=== PATIENT | female | born 1995 | race Caucasian/White ===

== ENCOUNTER 2016-11-08 15:24 | Emergency (ER) | payer MEDICAID ==
[~2016-11-08] VITALS: Ht 162.6 cm; Wt 63.6 kg
[2016-11-08 15:29] VITALS: TEMP 98.2
[2016-11-08 16:32] LABS: BASO % 0.2 % (0.0-2.0); EOS % 0.2 % (0-4.0); GRAN # 4.7 (1.4-6.5); GRAN % 73.3 % (42.2-75.2); LYMPH # 1.2 (1.2-3.4); LYMPH % 18.7 % (20.0-51.0); MEAN CELL VOLUME 82 fl (80.0-100.0); MEAN CORPUSCULAR HGB CONC 33 g/dl (33.0-37.0); MEAN PLATELET VOLUME 12.2 fl (7.4-10.4); MONO # 0.5 (0.1-0.6); MONO % 7.3 % (1.7-9.3); PLATELET COUNT 185 K/mm3 (130-400); RED BLOOD COUNT 4.13 M/mm3 (4.10-5.30); REDCELL DISTRIBUTION WIDTH-CV 14.7 % (11.5-14.5); WHITE BLOOD COUNT 6.4 K/mm3 (4.8-10.8)
[2016-11-08 16:36] LABS: HEMATOCRIT 33.8 % (37.0-47.0); HEMOGLOBIN 11.1 g/dl (12.5-16.0); MEAN CORPUSCULAR HEMOGLOBIN 27 pg (27.0-31.0)
[2016-11-08 16:41] LABS: ADJUSTED CALCIUM 9.3 mg/dL (8.4-10.2); ALBUMIN 3.5 gm/dL (3.5-5.0); BILIRUBIN,TOTAL 0.6 mg/dL (0.0-1.0); CALCIUM 8.9 mg/dL (8.4-10.2); CREATININE, serum 0.54 mg/dL (0.52-1.25); POTASSIUM 3.3 mmol/L (3.4-5.0); TOTAL PROTEIN 6.8 gm/dL (6.4-8.2)
[2016-11-08 17:21] VITALS: BP 110/70; PULSE 88
[2016-11-08 18:01] LABS: INFLUENZA B NEGATIVE
== END 2016-11-08 17:23 | disposition home or self-care (01) ==
LOC: COL.ER 15:24
PROVIDERS: Emergency Medicine
DX: O98.512 Other viral diseases complicating pregnancy, second trimester (principal); B34.9 Viral infection, unspecified; O99.282 Endocrine, nutritional and metabolic diseases complicating pregnancy, second trimester; E87.6 Hypokalemia; O99.332 Smoking (tobacco) complicating pregnancy, second trimester; F17.210 Nicotine dependence, cigarettes, uncomplicated; Z3A.20 20 weeks gestation of pregnancy
CPT/HCPCS: J1200; J7030

== ENCOUNTER 2016-12-01 11:51 | Emergency (ER) | payer MEDICAID ==
[~2016-12-01] VITALS: Ht 162.6 cm; Wt 67.6 kg
[2016-12-01 12:00] VITALS: BP 120/65; TEMP 97.8
[2016-12-01 12:41] LABS: PH 8 (5-8); URINE APPEARANCE Cloudy; URINE BACTERIA Rare /hpf; URINE BILIRUBIN Negative (NEGATIVE); URINE BLOOD Negative (NEGATIVE); URINE COLOR Yellow; URINE GLUCOSE Negative (NEGATIVE); URINE KETONE Trace (NEGATIVE)
[2016-12-01 13:19] LABS: BASO % 0.2 % (0.0-2.0); EOS % 0.4 % (0-4.0); GRAN # 5.6 (1.4-6.5); GRAN % 65.9 % (42.2-75.2); LYMPH # 2.4 (1.2-3.4); LYMPH % 27.9 % (20.0-51.0); MEAN CELL VOLUME 83 fl (80.0-100.0); MEAN CORPUSCULAR HGB CONC 33 g/dl (33.0-37.0); MEAN PLATELET VOLUME 12.7 fl (7.4-10.4); MONO # 0.4 (0.1-0.6); MONO % 5.2 % (1.7-9.3); PLATELET COUNT 221 K/mm3 (130-400); RED BLOOD COUNT 4.43 M/mm3 (4.10-5.30); REDCELL DISTRIBUTION WIDTH-CV 14.8 % (11.5-14.5); WHITE BLOOD COUNT 8.4 K/mm3 (4.8-10.8)
[2016-12-01 13:20] LABS: HEMATOCRIT 36.6 % (37.0-47.0); HEMOGLOBIN 11.9 g/dl (12.5-16.0); MEAN CORPUSCULAR HEMOGLOBIN 27 pg (27.0-31.0)
[2016-12-01 13:31] LABS: ADJUSTED CALCIUM 9.5 mg/dL (8.4-10.2); ALBUMIN 3.8 gm/dL (3.5-5.0); BILIRUBIN,TOTAL 1.3 mg/dL (0.0-1.0); CALCIUM 9.3 mg/dL (8.4-10.2); CREATININE, serum 0.55 mg/dL (0.52-1.25); POTASSIUM 3.4 mmol/L (3.4-5.0); TOTAL PROTEIN 7.5 gm/dL (6.4-8.2)
[2016-12-01] MEDS ORDERED: ZITHROMAX Z PA250 MG PO (14:33)
[2016-12-01 14:54] VITALS: PULSE 77
== END 2016-12-01 14:54 | disposition home or self-care (01) ==
LOC: COL.ER 11:51
PROVIDERS: Nurse Practitioner
DX: O99.89 Other specified diseases and conditions complicating pregnancy, childbirth and the puerperium (principal); R10.84 Generalized abdominal pain; O99.332 Smoking (tobacco) complicating pregnancy, second trimester; F17.210 Nicotine dependence, cigarettes, uncomplicated; Z3A.20 20 weeks gestation of pregnancy; R05 Cough
CPT/HCPCS: J7030

== ENCOUNTER 2017-02-16 12:42 | Outpatient (CLI) | payer MEDICAID ==
[~2017-02-16] VITALS: Ht 162.6 cm; Wt 72.7 kg
[~2017-02-16 12:42] MED LIST: ZITHROMAX Z PA250 MG PO
[2017-02-16 13:00] VITALS: BP 118/69; PULSE 106; TEMP 97.7
[2017-02-16] MEDS ORDERED: PRENATAL1 TA7 PO (13:02)
[2017-02-16] MEDS ORDERED: IRON325 M2 PO (13:03)
[2017-02-16] MEDS ORDERED: LEXAPRO 10MG10 MG PO (13:03)
[2017-02-16 13:30] VITALS: BP 110/65; PULSE 85
[2017-02-16 14:00] VITALS: BP 117/74; PULSE 78
[2017-02-16 14:30] VITALS: BP 109/64; PULSE 80
[2017-02-16 15:00] VITALS: BP 90/53; PULSE 85
== END 2017-02-16 15:30 | disposition home or self-care (01) ==
LOC: LDRO 12:42
DX: O26.893 Other specified pregnancy related conditions, third trimester (principal); O99.333 Smoking (tobacco) complicating pregnancy, third trimester; F17.210 Nicotine dependence, cigarettes, uncomplicated; Z3A.32 32 weeks gestation of pregnancy; W19.XXXA Unspecified fall, initial encounter

== ENCOUNTER 2017-02-23 17:19 | Outpatient (CLI) | payer MEDICAID ==
[~2017-02-23] VITALS: Ht 162.6 cm; Wt 72.7 kg
[2017-02-23] VITALS (9 sets, daily range): BP systolic 110–145; BP diastolic 62–81; PULSE 87–125; TEMP 97.8–98.6
[~2017-02-23 17:19] MED LIST changes: +IRON325 M2 PO; +LEXAPRO 10MG10 MG PO; +PRENATAL1 TA7 PO
[2017-02-23 19:30] LABS: BASO % 0.3 % (0.0-2.0); EOS % 0.3 % (0-4.0); GRAN # 5.9 (1.4-6.5); GRAN % 62.8 % (42.2-75.2); LYMPH # 2.6 (1.2-3.4); LYMPH % 28.1 % (20.0-51.0); MEAN CELL VOLUME 79 fl (80.0-100.0); MEAN CORPUSCULAR HGB CONC 32 g/dl (33.0-37.0); MEAN PLATELET VOLUME 12.7 fl (7.4-10.4); MONO # 0.7 (0.1-0.6); MONO % 7.9 % (1.7-9.3); PLATELET COUNT 203 K/mm3 (130-400); RED BLOOD COUNT 4.09 M/mm3 (4.10-5.30); REDCELL DISTRIBUTION WIDTH-CV 13.9 % (11.5-14.5); WHITE BLOOD COUNT 9.4 K/mm3 (4.8-10.8)
[2017-02-23 19:31] LABS: HEMATOCRIT 32.1 % (37.0-47.0); HEMOGLOBIN 10.3 g/dl (12.5-16.0); MEAN CORPUSCULAR HEMOGLOBIN 25 pg (27.0-31.0)
[2017-02-23 19:43] LABS: AMPHETAMINE URINE NEGATIVE; BARBITURATES URINE POSITIVE; BENZODIAZEPINES URINE NEGATIVE; METHADONE URINE NEGATIVE; OPIATES URINE NEGATIVE; OXYCODONE URINE NEGATIVE; PHENCYCLIDINE URINE NEGATIVE; PROPOXYPHENE URINE NEGATIVE; THC CANNABINOIDS URINE POSITIVE
[2017-02-23 19:45] LABS: PH 7 (5-8); URINE APPEARANCE Clear; URINE BACTERIA None Seen /hpf; URINE BILIRUBIN Negative (NEGATIVE); URINE BLOOD 2+ (NEGATIVE); URINE COLOR Yellow; URINE GLUCOSE Negative (NEGATIVE); URINE KETONE Negative (NEGATIVE); URINE UROBILINOGEN Negative (NEGATIVE)
[2017-02-23] MEDS ORDERED: LEXAPRO 10MG10 MG PO (21:49)
[2017-02-23] MEDS ORDERED: CEPHALEXIN500 M1 PO (21:49)
== END 2017-02-23 22:10 | disposition home or self-care (01) ==
LOC: LDRO 17:19 → LDR 17:51 → LDRO 17:51
PROVIDERS: Obstetrics & Gynecology
DX: O47.03 False labor before 37 completed weeks of gestation, third trimester (principal); O34.33 Maternal care for cervical incompetence, third trimester; F17.210 Nicotine dependence, cigarettes, uncomplicated; Z3A.33 33 weeks gestation of pregnancy
CPT/HCPCS: J0702; J2540; J3105; J7120

== ENCOUNTER 2017-02-24 15:56 | Outpatient (CLI) | payer MEDICAID ==
[~2017-02-24 15:56] MED LIST changes: +CEPHALEXIN500 M1 PO
[2017-02-24 17:00] VITALS: BP 120/72; PULSE 103; TEMP 98.7
[2017-02-24 17:30] VITALS: BP 103/59; PULSE 81
[2017-02-24 17:44] VITALS: BP 120/72; PULSE 103; TEMP 98.7
[2017-02-24 18:00] VITALS: BP 109/56; PULSE 81
== END 2017-02-24 19:35 | disposition home or self-care (01) ==
LOC: LDRO 15:56 → LDR 16:00 → LDRO 19:35
DX: O47.03 False labor before 37 completed weeks of gestation, third trimester (principal); M54.9 Dorsalgia, unspecified; F17.210 Nicotine dependence, cigarettes, uncomplicated; Z3A.33 33 weeks gestation of pregnancy
CPT/HCPCS: OP; J0702; J7120

== ENCOUNTER 2017-03-01 18:57 | Outpatient (CLI) | payer MEDICAID ==
[~2017-03-01] VITALS: Ht 162.6 cm; Wt 72.7 kg
[2017-03-01 19:30] VITALS: BP 111/55; PULSE 104
[2017-03-01 19:41] VITALS: BP 117/74; PULSE 125; TEMP 98.2
[2017-03-01 20:00] VITALS: BP 122/75; PULSE 96
== END 2017-03-01 20:15 | disposition home or self-care (01) ==
LOC: LDRO 18:57
DX: O47.03 False labor before 37 completed weeks of gestation, third trimester (principal); F17.210 Nicotine dependence, cigarettes, uncomplicated; O99.333 Smoking (tobacco) complicating pregnancy, third trimester; Z3A.34 34 weeks gestation of pregnancy

== ENCOUNTER → 2017-03-07 | Outpatient (CLI) | payer MEDICAID ==
[~2017-03-07] VITALS: Ht 162.6 cm; Wt 72.7 kg
[2017-03-07 21:45] VITALS: BP 125/76; PULSE 80
[2017-03-07 22:10] VITALS: BP 130/78; PULSE 65; TEMP 97.8; TEMP 97.9
[2017-03-07 22:15] VITALS: BP 112/76; PULSE 83
[2017-03-07 22:45] VITALS: BP 113/70; PULSE 95
== END ==
LOC: LDRO 21:10
DX: O60.03 Preterm labor without delivery, third trimester (principal); Z3A.35 35 weeks gestation of pregnancy
CPT/HCPCS: J7120